=== PATIENT | male | born 1990 ===

== ENCOUNTER → 2016-07-22 | Outpatient (CLI) | payer OTHER | LOC: C.RDSM 14:03 | PROVIDERS: ATTEND Orthopaedic Surgery Sports Medicine | DX: M25.571 Pain in right ankle and joints of right foot (principal) ==

== ENCOUNTER → 2016-08-08 | Outpatient (CLI) | payer OTHER | LOC: C.RDSM 08:00 | PROVIDERS: ATTEND Orthopaedic Surgery Sports Medicine | DX: Z09 Encounter for follow-up examination after completed treatment for conditions other than malignant neoplasm (principal); Z87.828 Personal history of other (healed) physical injury and trauma ==

== ENCOUNTER → 2016-08-29 | Outpatient (CLI) | payer OTHER ==
--- NOTE | 2016-08-29 12:27 | DIAGNOSTIC IMAGING REPORT ---
RIGHT ANKLE MIN 3 VIEWS CLINICAL HISTORY: Distal right fibular fracture. COMPARISON: Right ankle radiographs July 22, 2016 and August 08, 2016. FINDINGS: Alignment of the minimally displaced oblique distal right fibular fracture is unchanged since prior exam. There is minimal callus formation. Talar dome is intact. No ankle mortise widening is identified. A tiny bone fragment along the medial malleolus is unchanged. IMPRESSION: 1. No change in alignment of the minimally displaced oblique distal right fibular fracture with mild interval callus formation. 2. No ankle mortise widening. 3. Tiny avulsed bone fragment along the medial malleolus which is unchanged. Electronically signed by: Shar Mcqueen M.D. 08/29/2016 12:25 PM Dictated Date/Time: 08/29/2016 12:24 PM
== END ==
LOC: C.RDSM 14:29
PROVIDERS: ATTEND Physical Medicine & Rehabilitation Sports Medicine
DX: S82.64XD Nondisplaced fracture of lateral malleolus of right fibula, subsequent encounter for closed fracture with routine healing (principal); X58.XXXD Exposure to other specified factors, subsequent encounter

== ENCOUNTER → 2016-09-26 | Outpatient (CLI) | payer OTHER ==
--- NOTE | 2016-09-26 11:13 | DIAGNOSTIC IMAGING REPORT ---
RIGHT ANKLE 3 VIEWS CLINICAL HISTORY: Follow-up fracture. FINDINGS: 3 views of the right ankle are compared to study dated 08/29/2016. The skeletal structures are well mineralized. There is unchanged alignment of a healing lateral malleolar fracture. The ankle mortise appears preserved. A small ossific density within the medial joint space is unchanged from previous. A joint effusion is noted. Overlying soft tissue edema persists. IMPRESSION: 1. Unchanged alignment of a healing fracture of the right lateral malleolus as compared to 08/29/2016. 2. A tiny avulsed bone fragment within the medial joint space is unchanged. Electronically signed by: Guillermo Zheng M.D. 09/26/2016 11:11 AM Dictated Date/Time: 09/26/2016 11:10 AM
== END | disposition home or self-care (01) ==
LOC: C.RDSM 10:50
PROVIDERS: ATTEND Physical Medicine & Rehabilitation Sports Medicine
DX: S82.64XD Nondisplaced fracture of lateral malleolus of right fibula, subsequent encounter for closed fracture with routine healing (principal); X58.XXXD Exposure to other specified factors, subsequent encounter

== ENCOUNTER → 2016-10-24 | Outpatient (CLI) | payer OTHER ==
--- NOTE | 2016-10-24 10:07 | DIAGNOSTIC IMAGING REPORT ---
RIGHT ANKLE MIN 3 VIEWS CLINICAL HISTORY: Fracture distal right fibula. COMPARISON: Right ankle radiographs July 22, 2016 and September 26, 2016. FINDINGS: A tiny avulsed bone fragment along the medial malleolus is unchanged. There is no ankle mortise widening. Alignment of the mildly displaced oblique distal right fibular fracture is unchanged. Fracture healing is incomplete. IMPRESSION: No change in alignment of the incompletely healed mildly displaced distal right fibular fracture. Electronically signed by: Shar Mcqueen M.D. 10/24/2016 10:05 AM Dictated Date/Time: 10/24/2016 10:04 AM
== END | disposition home or self-care (01) ==
LOC: C.RDSM 10:00
PROVIDERS: ATTEND Physician Assistant
DX: S82.64XD Nondisplaced fracture of lateral malleolus of right fibula, subsequent encounter for closed fracture with routine healing (principal); X58.XXXD Exposure to other specified factors, subsequent encounter